=== PATIENT | female | born 1960 | race American Indian/Alaskan Native ===

== ENCOUNTER 2016-07-15 13:52 | Outpatient (CLI) | payer OTHER ==
--- NOTE | 2016-07-15 14:41 | Mammography Report ---
Bilateral mammogram: Compared to 06/03/14. CAD study utilized. Findings: Heterogeneous breast parenchyma bilaterally. 3 mm circumscribed new asymmetry subareolar right breast. No microcalcification. Benign axillary nodes. Impression: New density subareolar right breast. Recommend spot mag and 90degree lateral and sonographic examination. BI-RADS CATEGORY: 0 = Needs additional imaging evaluation ACR BI-RADS MAMMOGRAPHIC CODES: 0 = Needs additional imaging evaluation; 1 = Negative; 2 = Benign; 3 = Probably benign; 4 = Suspicious; 5 = Malignant; 6 = Known biopsy-proven malignancy COMMENT: 1. Dense breast tissue, i.e., adenosis, fibrocystic changes, etc., may obscure an underlying neoplasm. 2. Approximately 10% of cancers are not detected with mammography. 3. A negative mammography report should not delay biopsy if a clinically suspicious mass is present. COMMENT: Patient follow-up letters are generated in [employer].
== END 2016-07-15 13:53 | disposition home or self-care (01) ==
LOC: MAMMO 13:52
PROVIDERS: ATTEND Obstetrics & Gynecology Gynecology
DX: Z12.31 Encounter for screening mammogram for malignant neoplasm of breast (principal)
CPT/HCPCS: 77067; G0202

== ENCOUNTER 2016-07-26 08:41 | Outpatient (CLI) | payer OTHER ==
--- NOTE | 2016-07-26 10:09 | Mammography Report ---
Right mammogram: Additional compression lateral imaging of the right breast is performed based on recent screening exam raising question of asymmetry. The additional views demonstrate normal fibroglandular tissue with no asymmetry or change compared to 2015. Impression: Stable exam. Recommendation: Annual mammogram followup. BI-RADS CATEGORY: 1 = Negative ACR BI-RADS MAMMOGRAPHIC CODES: 0 = Needs additional imaging evaluation; 1 = Negative; 2 = Benign; 3 = Probably benign; 4 = Suspicious; 5 = Malignant; 6 = Known biopsy-proven malignancy COMMENT: 1. Dense breast tissue, i.e., adenosis, fibrocystic changes, etc., may obscure an underlying neoplasm. 2. Approximately 10% of cancers are not detected with mammography. 3. A negative mammography report should not delay biopsy if a clinically suspicious mass is present.
== END 2016-07-26 08:42 | disposition home or self-care (01) ==
LOC: MAMMO 08:41
PROVIDERS: ATTEND Obstetrics & Gynecology Gynecology
DX: Z12.31 Encounter for screening mammogram for malignant neoplasm of breast (principal)
CPT/HCPCS: 77067; G0202

== ENCOUNTER 2017-08-08 08:23 | Outpatient (CLI) | payer MEDICARE ==
--- NOTE | 2017-08-09 10:05 | Mammography Report ---
BILATERAL DIGITAL SCREENING MAMMOGRAM with CAD and BILATERAL DIGITAL BREAST TOMOSYNTHESIS (DBT) : 08/08/17 00:00:00 CLINICAL: Routine screening.History of dense breasts. COMPARISON:07/26/16 FINDINGS: The breasts are heterogeneously dense, which may obscure small masses. Two left parenchymal asymmetries require additional imaging.They are identified on CC image 14 and there is questionable correlation on MLO images 14 and 25. No architectural distortion or suspicious calcifications. The right breast is negative. IMPRESSION: Left asymmetries requiring additional workup. BI-RADS CATEGORY: 0 - - Needs Additional Imaging RECOMMENDATION: Recall for global left breast ultrasound. COMMENT: Patient follow-up letters are generated by our [employer] application.
== END 2017-08-08 08:24 | disposition home or self-care (01) ==
LOC: MAMMO 08:23
PROVIDERS: ATTEND Obstetrics & Gynecology Gynecology
DX: Z12.31 Encounter for screening mammogram for malignant neoplasm of breast (principal)
CPT/HCPCS: 77063; 77067

== ENCOUNTER 2018-09-09 08:57 | Outpatient (CLI) | payer OTHER, MEDICARE ==
--- NOTE | 2018-09-09 11:53 | Mammography Report ---
BILATERAL DIGITAL SCREENING MAMMOGRAMS WITH CAD INDICATION: Screening. COMPARISONS: 08/08/2017 FINDINGS: Craniocaudal and mediolateral oblique views of both breasts were obtained using 2-D digital acquisition. In addition to standard review, the examination was analyzed for possible abnormalities using a [employer]-assisted detection device (iCAD). The breast tissue is heterogeneously dense, which may obscure small masses. A right retroareolar asymmetry on the MLO view requires additional imaging. No architectural distorti on or suspicious calcifications. The left breast is negative. IMPRESSION: Right asymmetry requiring additional imaging. Recommend recall for right spot magnification nipple vi ews and right breast ultrasound if needed. BI-RADS CATEGORY 0: INCOMPLETE - NEED ADDITIONAL IMAGING EVALUATION AND/OR PRIOR MAMMOGRAMS FOR COMP ARISON Information is entered into a reminder system for a target due date for the next mammogram. The resul ts and recommendations were sent to the patient by mail. Signer Name: Jesus Mancuso MD Signed: 09/09/2018 11:49 AM Workstation Name: [id number]
== END 2018-09-09 08:58 | disposition home or self-care (01) ==
LOC: MAMMO 08:57
PROVIDERS: ATTEND Obstetrics & Gynecology
DX: Z12.31 Encounter for screening mammogram for malignant neoplasm of breast (principal); E78.5 Hyperlipidemia, unspecified; K21.9 Gastro-esophageal reflux disease without esophagitis
CPT/HCPCS: 77067